=== PATIENT | female | born 1980 | race Caucasian/White ===

== ENCOUNTER 2023-06-08 02:48 | Emergency (ER) | payer MEDICAID, OTHER ==
[~2023-06-08] VITALS: Ht 170.2 cm; Wt 195.0 kg
[2023-06-08 02:48] VITALS: BP 135/85
[2023-06-08 04:09] LABS: Basophils # (auto) 0.1 10 ^3/uL (0-0.2); Basophils % (auto) 0.8 % (0.0-2.0); Eosinophils # (auto) 0.1 10 ^3/uL (0-0.8); Hemoglobin 10.9 g/dL (12.2-16.2); Lymphocytes # (auto) 2.3 10 ^3/uL (0.4-5.4); Monocytes # (auto) 0.6 10 ^3/uL (0-1.3); Neutrophils # (auto) 3.8 10 ^3/uL (1.6-8.6)
[2023-06-08 04:10] LABS: Hematocrit 35.7 % (36.0-46.0); Lymphocytes % (auto) 32.7 % (10.0-50.0); Mean Corpuscular Hemoglobin 21.8 pg (28.0-32.0); Mean Corpuscular Hgb Conc. 30.5 g/dL (32.0-36.0); Mean Corpuscular Volume 71.6 fL (80.0-100.0); Monocytes % (auto) 9.3 % (0.0-12.0); Neutrophils % (auto) 55.2 % (37.0-80.0); Nucleated Red Blood Cells % 0.1 %; Red Blood Cells 4.99 10^6/uL (4.0-5.20); Red Cell Distribution Width 17.2 % (11.8-14.3); White Blood Cell 6.9 10^3/uL (4.4-10.8)
[2023-06-08 04:30] LABS: Albumin 3.4 g/dL (3.4-5.0); BUN/Creatinine Ratio 14.9 (10.0-20.0); Calcium 8.7 mg/dL (8.5-10.1); Potassium 3.7 mmol/L (3.5-5.1)
[2023-06-08 04:32] LABS: Bilirubin, Total 0.4 mg/dL (0.2-1.0); Total Protein 7.9 g/dL (6.4-8.2)
[2023-06-08 04:33] LABS: Urine Bacteria FEW /hpf (None Seen); Urine Blood Negative /uL (Negative); Urine Mucus FEW (None Seen); Urine Specific Gravity 1.032 (1.001-1.035); Urine WBC 24 /hpf (0 - 5)
== END 2023-06-08 06:46 | disposition left against medical advice (07) ==
LOC: ER 02:52
DX: R10.11 Right upper quadrant pain (principal); R10.2 Pelvic and perineal pain; Z53.21 Procedure and treatment not carried out due to patient leaving prior to being seen by health care provider
CPT/HCPCS: 36415; 80053; 81001; 83690; 84702; 85025

== ENCOUNTER 2023-11-21 16:22 | Inpatient (IN) | payer MEDICAID ==
[~2023-11-21] VITALS: Ht 170.2 cm; Wt 103.5 kg
[2023-11-21] MEDS ORDERED: ACCU-CHEK COMFORT CURVE STRIP VI ONE (17:00)
[2023-11-21 17:45] LABS: Basophils # (auto) 0.1 10 ^3/uL (0-0.2); Eosinophils # (auto) 0.1 10 ^3/uL (0-0.8); Eosinophils % (auto) 0.7 % (0.0-7.0); Hematocrit 37.3 % (36.0-46.0); Hemoglobin 11.2 g/dL (12.2-16.2); Lymphocytes # (auto) 0.4 10 ^3/uL (0.4-5.4); Lymphocytes % (auto) 5.3 % (10.0-50.0); Mean Corpuscular Hgb Conc. 30.1 g/dL (32.0-36.0); Mean Corpuscular Volume 63.2 fL (80.0-100.0); Monocytes # (auto) 0.4 10 ^3/uL (0-1.3); Monocytes % (auto) 4.7 % (0.0-12.0); Neutrophils # (auto) 7.2 10 ^3/uL (1.6-8.6); Neutrophils % (auto) 88.3 % (37.0-80.0); Nucleated Red Blood Cells % 0.1 %; Red Cell Distribution Width 17.9 % (11.8-14.3); White Blood Cell 8.2 10^3/uL (4.4-10.8)
[2023-11-21 18:09] LABS: Alanine Aminotransferase 28 U/L (7-40); Alkaline Phosphatase 120 U/L (46-116); Anion Gap 12 (5-15); Aspartate Aminotransferase 36 U/L (13-40); BUN/Creatinine Ratio 18.2 (10.0-20.0); Blood Urea Nitrogen 12 mg/dL (9-23); Calcium 8.8 mg/dL (8.7-10.4); Carbon Dioxide 20 mmol/L (20-30); Chloride 100 mmol/L (98-107); Glucose 341 mg/dL (74-106); Potassium 4.4 mmol/L (3.5-5.1); Sodium 132 mmol/L (136-145); Total Protein 7.2 g/dL (5.7-8.2)
[2023-11-21 19:13] LABS: Lactic Acid w/Reflex 2.1 mmol/L (0.4-2.0)
[2023-11-21 19:20] LABS: Platelet Estimate Increased
[2023-11-21 19:21] LABS: Ovalocytes FEW; Stomatocytes Many
[2023-11-21] MEDS ORDERED: InsuLIN REG 1unit/0.01ml Soln (100units/ml) IV ONE (20:30)
[2023-11-21] MEDS ORDERED: LACTATED RINGER'S 2,000 ML IV ONE (20:30)
[2023-11-21 23:36] LABS: Urine Bacteria FEW /hpf (None Seen); Urine Blood Negative /uL (Negative); Urine Clarity HAZY (Clear); Urine Color Yellow (Yellow); Urine Mucus FEW (None Seen); Urine Protein, UAD TRACE (Negative); Urine Specific Gravity 1.033 (1.001-1.035); Urine Urobilinogen Normal (Negative); Urine WBC 45 /hpf (0 - 5); Urine pH 5.5 (5.0-8.0)
[2023-11-22] MEDS ORDERED: cefTRIAXone 1GM/50ML D5W 50 ML IV ONE (02:00)
[2023-11-22] MEDS ORDERED: LACTATED RINGER'S 1,000 ML IV ONE (02:00)
[2023-11-22] MEDS ORDERED: InsuLIN REG 1unit/0.01ml Soln (100units/ml) IV ONE (02:00)
[2023-11-22 04:12] VITALS: PULSE 118; RESP 23; O2SAT 92
[2023-11-22] MEDS ORDERED: DEXTROSE (50%) 50ML SYRG IV PRN (07:15)
[2023-11-22] MEDS ORDERED: MORPHINE SULFATE INJ 2 MG/ml SYRG IV PRN (07:15)
[2023-11-22] MEDS ORDERED: ONDANSETRON HCL 4 MG/2 ML VIAL IV PRN (07:15)
[2023-11-22] MEDS ORDERED: DOCUSATE SOD 100 MG CAP PO PRN (07:15)
[2023-11-22] MEDS ORDERED: ACETAMINOPHEN 325 MG TAB PO PRN (07:15)
[2023-11-22 07:38] VITALS: PULSE 112; RESP 19; O2SAT 97
[2023-11-22] MEDS: cefTRIAXone 1GM/50ML D5W 50 ML IV SCH (09:00)
[2023-11-22] MEDS: SODIUM CHLORIDE 0.9% 1,000 ML IV SCH ×3 (09:33→23:55)
[2023-11-22] MEDS ORDERED: cefTRIAXone 1GM/50ML D5W 50 ML IV SCH (10:00)
[2023-11-22] MEDS: ENOXAPARIN SOD 40 MG/0.4 ML SYRINGE SC SCH (11:11)
[2023-11-22] MEDS: InsuLIN REG 1unit/0.01ml Soln (100units/ml) SC SCH ×3 (13:09→23:21)
[2023-11-22] MEDS: ACCU-CHEK COMFORT CURVE STRIP VI SCH ×3 (13:09→23:21)
[2023-11-22 13:46] VITALS: PULSE 105; RESP 19; O2SAT 98
[2023-11-22 22:00] VITALS: BP 128/68; PULSE 105; RESP 19; TEMP 98.2; O2SAT 95
[2023-11-23] VITALS (8 sets, daily range): BP systolic 117–138; BP diastolic 64–83; PULSE 74–101; RESP 16–20; TEMP 97.3–98.4; O2SAT 93–100
[2023-11-23] MEDS: HYDROcodone-ACET 5/325MG TAB PO PRN ×2 (04:34→13:28)
[2023-11-23 06:01] LABS: Basophils # (auto) 0 10 ^3/uL (0-0.2); Eosinophils # (auto) 0.1 10 ^3/uL (0-0.8); Hemoglobin 9.4 g/dL (12.2-16.2); Monocytes # (auto) 0.5 10 ^3/uL (0-1.3); White Blood Cell 3.5 10^3/uL (4.4-10.8)
[2023-11-23 06:03] LABS: Basophils % (auto) 0.2 % (0.0-2.0); Eosinophils % (auto) 2.9 % (0.0-7.0); Hematocrit 32.3 % (36.0-46.0); Lymphocytes # (auto) 0.5 10 ^3/uL (0.4-5.4); Lymphocytes % (auto) 15.2 % (10.0-50.0); Mean Corpuscular Hemoglobin 18.4 pg (28.0-32.0); Mean Corpuscular Hgb Conc. 29.1 g/dL (32.0-36.0); Mean Corpuscular Volume 63.3 fL (80.0-100.0); Monocytes % (auto) 13.2 % (0.0-12.0); Neutrophils # (auto) 2.4 10 ^3/uL (1.6-8.6); Neutrophils % (auto) 68.5 % (37.0-80.0); Red Blood Cells 5.11 10^6/uL (4.0-5.20); Red Cell Distribution Width 17.7 % (11.8-14.3)
[2023-11-23] MEDS: ACCU-CHEK COMFORT CURVE STRIP VI SCH ×3 (06:13→18:00)
[2023-11-23] MEDS: InsuLIN REG 1unit/0.01ml Soln (100units/ml) SC SCH ×3 (06:13→18:00)
[2023-11-23 06:16] LABS: Alanine Aminotransferase 45 U/L (7-40); Albumin 3.4 g/dL (3.2-4.8); Alkaline Phosphatase 110 U/L (46-116); Anion Gap 8 (5-15); Aspartate Aminotransferase 75 U/L (13-40); BUN/Creatinine Ratio 11.3 (10.0-20.0); Bilirubin, Total 0.4 mg/dL (0.2-1.0); Blood Urea Nitrogen 6 mg/dL (9-23); Calcium 8.1 mg/dL (8.5-10.1); Carbon Dioxide 23 mmol/L (20-30); Chloride 107 mmol/L (98-107); Glucose 142 mg/dL (74-106); Potassium 3.1 mmol/L (3.5-5.1); Sodium 138 mmol/L (136-145); Total Protein 6.1 g/dL (5.7-8.2)
[2023-11-23] MEDS: cefTRIAXone 1GM/50ML D5W 50 ML IV SCH (08:13)
[2023-11-23] MEDS: ENOXAPARIN SOD 40 MG/0.4 ML SYRINGE SC SCH (08:13)
[2023-11-23] MEDS: SODIUM CHLORIDE 0.9% 1,000 ML IV SCH ×2 (08:15→17:57)
[2023-11-23 09:00] LABS: Platelet Estimate Adequate
[2023-11-23 09:01] LABS: Hypochromia Marked
[2023-11-23] MEDS ORDERED: POTASSIUM CHL 20 Meq TABLET PO ONE (13:00)
[2023-11-23] MEDS ORDERED: LEVO500T91 PO (14:21)
[2023-11-23] MEDS ORDERED: BLOO1KIT60 XX (14:22)
[2023-11-23] MEDS ORDERED: METF-370 PO (14:22)
[2023-11-24] VITALS (7 sets, daily range): BP systolic 126–148; BP diastolic 56–87; PULSE 86–100; RESP 18–81; TEMP 97.7–98.2; O2SAT 96–99
[2023-11-24] MEDS: ACCU-CHEK COMFORT CURVE STRIP VI SCH ×5 (00:06→23:42)
[2023-11-24] MEDS: InsuLIN REG 1unit/0.01ml Soln (100units/ml) SC SCH ×5 (00:09→23:44)
[2023-11-24] MEDS: SODIUM CHLORIDE 0.9% 1,000 ML IV SCH ×3 (00:55→16:13)
[2023-11-24] MEDS: cefTRIAXone 1GM/50ML D5W 50 ML IV SCH (08:38)
[2023-11-24] MEDS: ENOXAPARIN SOD 40 MG/0.4 ML SYRINGE SC SCH (09:58)
[2023-11-24] MEDS ORDERED: HYDROcodone-ACET 5/325MG TAB PO PRN (14:15)
[2023-11-24] MEDS ORDERED: MORPHINE SULFATE INJ 2 MG/ml SYRG IV PRN ×2 (14:15→16:15)
[2023-11-24] MEDS: HYDROcodone-ACET 5/325MG TAB PO PRN ×2 (16:34→22:09)
[2023-11-25] MEDS: SODIUM CHLORIDE 0.9% 1,000 ML IV SCH ×3 (02:04→17:42)
[2023-11-25 05:00] VITALS: BP 127/98; PULSE 91; RESP 20; TEMP 97.8; O2SAT 93
[2023-11-25] MEDS: InsuLIN REG 1unit/0.01ml Soln (100units/ml) SC SCH ×3 (06:10→17:15)
[2023-11-25] MEDS: ACCU-CHEK COMFORT CURVE STRIP VI SCH ×4 (06:10→23:57)
[2023-11-25 06:24] LABS: Basophils # (auto) 0 10 ^3/uL (0-0.2); Eosinophils # (auto) 0 10 ^3/uL (0-0.8); Hemoglobin 8.7 g/dL (12.2-16.2); Lymphocytes # (auto) 1.1 10 ^3/uL (0.4-5.4); Monocytes # (auto) 0.4 10 ^3/uL (0-1.3); Neutrophils # (auto) 0.9 10 ^3/uL (1.6-8.6); Red Cell Distribution Width 17.8 % (11.8-14.3); White Blood Cell 2.4 10^3/uL (4.4-10.8)
[2023-11-25 06:26] LABS: Basophils % (auto) 0.7 % (0.0-2.0); Hematocrit 29.6 % (36.0-46.0); Lymphocytes % (auto) 46.3 % (10.0-50.0); Mean Corpuscular Hemoglobin 18.8 pg (28.0-32.0); Mean Corpuscular Hgb Conc. 29.3 g/dL (32.0-36.0); Mean Corpuscular Volume 64.3 fL (80.0-100.0); Monocytes % (auto) 14.9 % (0.0-12.0); Neutrophils % (auto) 36.1 % (37.0-80.0); Nucleated Red Blood Cells % 0.4 %
[2023-11-25 06:32] LABS: Anion Gap 7 (5-15); Carbon Dioxide 27 mmol/L (20-30); Chloride 106 mmol/L (98-107); Potassium 3.2 mmol/L (3.5-5.1); Sodium 140 mmol/L (136-145)
[2023-11-25 06:33] LABS: Calcium 8.4 mg/dL (8.5-10.1)
[2023-11-25 06:39] LABS: Glucose 174 mg/dL (74-106)
[2023-11-25 06:44] LABS: BUN/Creatinine Ratio 9.4 (10.0-20.0); Blood Urea Nitrogen < 5 mg/dL (9-23)
[2023-11-25 09:00] VITALS: BP 132/79; PULSE 94; RESP 18; TEMP 97.7; O2SAT 100
[2023-11-25] MEDS: cefTRIAXone 1GM/50ML D5W 50 ML IV SCH (09:22)
[2023-11-25] MEDS: ENOXAPARIN SOD 40 MG/0.4 ML SYRINGE SC SCH (09:23)
[2023-11-25] MEDS ORDERED: POTASSIUM CHL 20 Meq TABLET PO ONE (11:30)
[2023-11-25 13:00] VITALS: BP 144/75; PULSE 95; RESP 17; TEMP 97.9; O2SAT 97
[2023-11-25 17:00] VITALS: BP 132/81; PULSE 88; RESP 18; TEMP 98.1; O2SAT 99
[2023-11-25 22:00] VITALS: BP 142/78; PULSE 90; RESP 18; TEMP 98.4; O2SAT 98
[2023-11-26] MEDS: InsuLIN REG 1unit/0.01ml Soln (100units/ml) SC SCH ×3 (00:04→11:59)
[2023-11-26] MEDS: SODIUM CHLORIDE 0.9% 1,000 ML IV SCH ×2 (00:04→11:15)
[2023-11-26 05:00] VITALS: BP 128/63; PULSE 95; RESP 18; TEMP 98.2; O2SAT 97
[2023-11-26] MEDS: ACCU-CHEK COMFORT CURVE STRIP VI SCH ×2 (06:06→11:59)
[2023-11-26 09:00] VITALS: BP 126/62; PULSE 89; RESP 19; TEMP 98.3; O2SAT 98
[2023-11-26] MEDS: cefTRIAXone 1GM/50ML D5W 50 ML IV SCH (10:31)
[2023-11-26] MEDS: ENOXAPARIN SOD 40 MG/0.4 ML SYRINGE SC SCH (10:32)
[2023-11-26 13:00] VITALS: BP 127/80; PULSE 79; RESP 18; TEMP 97.7; O2SAT 97
== END 2023-11-26 17:04 | disposition home or self-care (01) | DRG 720 ==
LOC: ER 16:22 → EDBD 16:22 → OVERFLOW 11-22 07:14 → WEST WING 11-22 13:26
PROVIDERS: ADMIT Internal Medicine; ATTEND Internal Medicine
DX: A41.9 Sepsis, unspecified organism (principal); E87.20 Acidosis, unspecified; D64.9 Anemia, unspecified; E11.65 Type 2 diabetes mellitus with hyperglycemia; E86.0 Dehydration; J45.909 Unspecified asthma, uncomplicated; N30.00 Acute cystitis without hematuria; Z88.8 Allergy status to other drugs, medicaments and biological substances; Z88.0 Allergy status to penicillin; Z79.4 Long term (current) use of insulin
CPT/HCPCS: 36415; 80048; 80053; 81001; 82010; 82962; 83605; 83880; 84484; 85025; 87040; 87086; 96361; 96374; G0378; J1815